=== PATIENT | male | born 1955 | race Caucasian/White ===

== ENCOUNTER 2016-04-03 19:08 | Emergency (ER) | payer MEDICARE, MEDICAID ==
--- NOTE | 2016-04-03 19:28 | EDM.PDOC ---
ED HPI GENERAL MEDICAL PROBLEM - General Chief Complaint: General Stated Complaint: stomach pain, chest pain, back pain Time Seen by Provider: 04/03/16 19:19 Source of Information: Reports: Patient History Limitations: Reports: No limitations - History of Present Illness INITIAL COMMENTS - FREE TEXT/NARRATIVE: pt states abd presure pain that all over abd into back and up spine and into all over chest started about 530 am non stop 11/01 neg NV diaphoretic SOB DARLNIG fever has had diarrhea x 2days maybe 7x's or so has been seen in [place] with in last 8 months cardiac stent placed 2nd blockage lots test but pt unsure of what denies AAA TAA HX or family HX of AAA TAA pt HX CABG 30 yrS AGO Onset: today Location: Reports: chest, abdomen, back Quality: Reports: Dull, Pressure Improves with: Reports: Other (WALKING ) Worsens with: Reports: Other (lying down ) Associated Symptoms: Reports: chest pain. Denies: cough, diaphoresis, fever/ chills, loss of appetite, nausea/vomiting, shortness of breath Generalized Pain Score (Numeric/FACES): 8 - Related Data Allergies Allergy/AdvReac Type Severity Reaction Status Date / Time buspirone [From BuSpar] Allergy Other Verified 04/03/16 19:53 diclofenac sodium Allergy Itching Verified 04/03/16 19:53 [From Arthrotec 50] misoprostol Allergy Cannot Verified 04/03/16 19:11 [From Arthrotec 50] Remember tizanidine [From Zanaflex] Allergy Other Verified 04/03/16 19:53 codeine AdvReac Stomach Verified 04/03/16 19:11 Upset Home Meds: Home Meds ALPRAZolam [Xanax] 0.5 mg PO Q12HR PRN 02/23/13 [History] Amitriptyline [Elavil] 25 mg PO BEDTIME 02/23/13 [History] Hydrocodone/Acetaminophen [Hydrocodon-Acetaminophn 10660] 1 each PO TID [History] Sertraline [Zoloft] 100 mg PO BEDTIME 02/23/13 [History] Allopurinol [Zyloprim] 300 mg PO DAILY 04/03/16 [History] Aspirin [Adult Low Dose Aspirin EC] 81 mg PO DAILY 04/03/16 [History] Cyclobenzaprine [Flexeril] 10 mg PO TID 04/03/16 [History] Esomeprazole Magnesium [Nexium] 40 mg PO DAILY 04/03/16 [History] Gabapentin [Neurontin] 800 mg PO TID 04/03/16 [History] Magnesium Oxide 400 mg PO DAILY 04/03/16 [History] amLODIPine [Norvasc] 5 mg PO DAILY 04/03/16 [History] Past Medical History Cardiovascular History: Reports: Bypass, CAD, High cholesterol, Pacemaker. Denies: Aneurysm, Hypertension Respiratory History: Denies: Asthma, COPD Gastrointestinal History: Reports: None Genitourinary History: Reports: None Musculoskeletal History: Reports: Gout Neurological History: Reports: None Oncologic (Cancer) History: Reports: None - Past Surgical History Musculoskeletal Surgical History: Reports: Other (see below) Other Musculoskeletal Surgeries/Procedures:: Foot and toe surgeries. Social & Family History - Tobacco Use Smoking Status *Q: Former Smoker Second Hand Smoke Exposure: No - Alcohol Use Days Per Week of Alcohol Use: 7 Number of Drinks Per Day: 3 Total Drinks Per Week: 21 - Recreational Drug Use Recreational Drug Use: No ED ROS GENERAL - Review of Systems Review Of Systems: See Below Constitutional: Reports: no symptoms HEENT: Reports: No symptoms Respiratory: Reports: no symptoms Cardiovascular: Reports: Chest pain. Denies: Blood pressure problem, Claudication, Lightheadedness, Orthopnea Endocrine: Reports: no symptoms GI/Abdominal: Reports: Abdominal pain. Denies: Constipation, Diarrhea : Reports: no symptoms Musculoskeletal: Reports: back pain Neurological: Reports: no symptoms Psychiatric: Reports: No symptoms Hematologic/Lymphatic: Reports: no symptoms Immunologic: Reports: no symptoms ED EXAM, GENERAL - Physical Exam Exam: See Below Exam Limited By: No limitations General Appearance: alert, WD/WN, no apparent distress Eye Exam: bilateral eye: PERRL Ears: normal external exam Neck: normal inspection, supple, non-tender, full range of motion. No: carotid bruit, limited range of motion Respiratory/Chest: no respiratory distress, lungs clear, normal breath sounds, no accessory muscle use, chest non-tender Cardiovascular: normal peripheral pulses, regular rate, rhythm, no edema, no gallop, no JVD. No: no murmur, JVD GI/Abdominal: normal bowel sounds, soft, non tender, no organomegaly, no distention, no abnormal bruit, no mass, other. No: distended, guarding, rigid, rebound, tender Back Exam: normal inspection, full range of motion. No: muscle spasm, paraspinal tenderness, vertebral tenderness Neurological: alert, oriented, CN II-XII intact, normal cognition, normal gait Psychiatric: normal affect, normal mood Skin Exam: Warm, Dry, Intact, Normal color, No rash Course - Vital Signs Text/Narrative:: cardiac work up reviewed old records here faxed release for records at [facility] for CT US chest abd pelvis no records of ct will scan for R/O AAA pt had asa am and is on norvasc will give bentyl 20 mg po labs all NEG CT abd pelvis NEG AAA mild thicking of GB 11cm recheck pt abd batter somewhat back still hurting will give toradol 30 mg IV has lortab and flexril at home Last Recorded V/S: Last Vital Signs Temp 35.9 C 04/03/16 19:11 Pulse 95 04/03/16 19:11 Resp 18 04/03/16 19:11 BP 137/71 04/03/16 21:05 Pulse Ox 99 04/03/16 19:11 - Orders/Labs/Meds Orders: Active Orders 24 hr Category Date Time Status CTA Abd Pelv w Cont [CT] Stat Exams 04/03/16 20:21 Ordered Chest 2V [CR] Stat Exams 04/03/16 19:20 Ordered Labs: Laboratory Tests 04/03/16 04/03/16 04/03/16 Range/Units 19:47 19:47 19:47 WBC 6.2 (4.0-10.0) x10^3/uL RBC 4.15 L (4.5-6.0) x10^6/uL Hgb 13.2 L (14.0-18.0) g/dL Hct 37.7 L (40.0-52.0) % MCV 90.8 (78.0-93.0) fL MCH 31.8 (26.0-32.0) pg MCHC 35.0 (32.0-36.0) g/dL RDW Coeff of Kamla 12.4 (10.0-15.0) % Plt Count 148 (130-400) x10^3/uL Neut % (Auto) 79.6 (50.0-80.0) % Lymph % (Auto) 12.0 L (25.0-50.0) % [place] % (Auto) 7.6 (2.0-11.0) % Eos % (Auto) 0.6 (0.0-4.0) % Baso % (Auto) 0.2 (0.2-1.2) % PT 10.0 (10.0-12.8) SEC INR 0.9 L (2.0-3.5) APTT 25.6 (24.0-36.0) SEC Sodium 137 (136-145) mmol/L Potassium 3.8 (3.5-5.1) mmol/L Chloride 101 (98-107) mmol/L Carbon Dioxide 29 (21-32) mmol/L BUN 8 (7-18) mg/dL Creatinine 1.0 (0.70-1.30) mg/dL Est Cr Clr Drug Dosing TNP Estimated GFR (MDRD) > 60 Glucose 116 H (74-106) mg/dL Calcium 8.2 L (8.5-10.1) mg/dL Troponin I < 0.017 (<=0.056) ng/mL Meds: Medications Discontinued Medications Generic Name Dose Route Start Last Admin Trade Name Freq PRN Reason Stop Dose Admin Dicyclomine HCl 20 mg 04/03/16 20:41 04/03/16 21:01 Bentyl PO 04/03/16 20:42 20 mg ONETIME ONE Administration Iopamidol 100 ml 04/03/16 20:41 04/03/16 21:16 Isovue-300 (61%) IVPUSH 04/03/16 20:42 100 ml ONETIME ONE Administration Ketorolac Tromethamine 30 mg 04/03/16 21:51 04/03/16 21:55 Toradol IVPUSH 04/03/16 21:52 30 mg ONETIME ONE Administration Simethicone 160 mg 04/03/16 20:42 04/03/16 21:02 Simethicone PO 04/03/16 20:43 160 mg ONETIME ONE Administration Departure - Departure Time of Disposition: 21:40 Disposition: Home, Self-Care 01 Condition: good Clinical Impression: Non-cardiac chest pain, Back pain, Abdominal pain Referrals: Sofía Barber MD [Primary Care Provider] - Forms: ED Department Discharge Additional Instructions: return to ER if anything changes or gets worse follow up with your primary provider in 24-48 hrs - My Orders Last 24 Hours: My Active Orders 04/03/16 19:20 Chest 2V [CR] Stat 04/03/16 20:21 CTA Abd Pelv w Cont [CT] Stat - Assessment/Plan Last 24 Hours: My Active Orders 04/03/16 19:20 Chest 2V [CR] Stat 04/03/16 20:21 CTA Abd Pelv w Cont [CT] Stat
[2016-04-03 19:57] LABS: BASOPHILS PERCENT AUTO 0.2 % (0.2-1.2); EOSINOPHILS PERCENT AUTO 0.6 % (0.0-4.0); HEMATOCRIT 37.7 % (40.0-52.0); HEMOGLOBIN 13.2 g/dL (14.0-18.0); MEAN CORPUSCULAR HEMOGLOBIN 31.8 pg (26.0-32.0); MEAN CORPUSCULAR VOLUME 90.8 fL (78.0-93.0); MONOCYTES PERCENT AUTO 7.6 % (2.0-11.0); NEUTROPHILS PERCENT AUTO 79.6 % (50.0-80.0); RDW CV 12.4 % (10.0-15.0); RED BLOOD CELL COUNT 4.15 x10^6/uL (4.5-6.0)
[2016-04-03 20:16] LABS: CALCIUM 8.2 mg/dL (8.5-10.1); CHLORIDE,CL 101 mmol/L (98-107); ESTIMATED GFR > 60; GLUCOSE RANDOM 116 mg/dL (74-106)
[2016-04-03 20:17] LABS: TROPONIN I < 0.017 ng/mL (<=0.056)
[2016-04-03 20:21] LABS: INR 0.9 (2.0-3.5)
[2016-04-03] MEDS ORDERED: Iopamidol 612 MG/ML 100 ML Bottle IVPUSH ONE (20:41)
[2016-04-03] MEDS ORDERED: Dicyclomine 10 MG Cap PO ONE (20:41)
[2016-04-03] MEDS ORDERED: Simethicone 80 MG Tab.Chew PO ONE (20:42)
[2016-04-03 21:05] VITALS: BP 137/71
[2016-04-03] MEDS ORDERED: Ketorolac 30 MG/ML SDV IVPUSH ONE (21:51)
== END 2016-04-03 22:03 | disposition home or self-care (01) ==
LOC: VM.ED 19:08
DX: R07.89 Other chest pain (principal); M54.9 Dorsalgia, unspecified; R10.9 Unspecified abdominal pain; I25.10 Atherosclerotic heart disease of native coronary artery without angina pectoris; E78.00 Pure hypercholesterolemia, unspecified; Z88.8 Allergy status to other drugs, medicaments and biological substances; Z88.6 Allergy status to analgesic agent; Z79.899 Other long term (current) drug therapy; Z79.82 Long term (current) use of aspirin; Z87.891 Personal history of nicotine dependence
CPT/HCPCS: 36415; 71020; 74174; 80048; 84484; 85025; 85610; 85730; 96374; 99284; A9270; J1885; Q9967

== ENCOUNTER 2017-01-06 09:56 | Emergency (ER) | payer MEDICARE, MEDICAID ==
[2017-01-06] MEDS ORDERED: Aspirin 81 MG Tab.Chew PO ONE ×2 (10:17→10:31)
[2017-01-06] MEDS ORDERED: Morphine 4 MG/ML Syringe IVPUSH ONE (10:26)
[2017-01-06] MEDS ORDERED: Ondansetron 4 MG/2 ML SDV IVPUSH ONE (10:28)
[2017-01-06] MEDS ORDERED: Sodium Chloride 0.9% 10 ML Syringe FLUSH PRN (10:31)
[2017-01-06] MEDS ORDERED: Nitroglycerin 0.4 MG Tab.SL SL ONE ×2 (10:31→11:00)
[2017-01-06 10:54] LABS: CHLORIDE,CL 99 mmol/L (98-107); SODIUM,NA 138 mmol/L (136-145)
[2017-01-06] MEDS ORDERED: HYDROmorphone 1 MG/ML Syringe IVPUSH ONE ×2 (11:04→12:48)
[2017-01-06] MEDS ORDERED: LORazepam 2 MG/ML SDV IVPUSH ONE (11:04)
[2017-01-06 11:15] VITALS: BP 148/95
--- NOTE | 2017-01-06 11:16 | EDM.PDOC ---
ED HPI GENERAL MEDICAL PROBLEM - General Chief Complaint: Chest Pain Stated Complaint: chest pain Time Seen by Provider: 01/06/17 10:26 Source of Information: Reports: Patient History Limitations: Reports: No Limitations - History of Present Illness INITIAL COMMENTS - FREE TEXT/NARRATIVE: Patient comes in this morning with complaints of severe left-sided chest pain. He states pain started at 0530 this AM. When I walk into the room he is writhing in pain, kicking his legs and rolling on the cot. Patient denies any prior SD, he also denies any prior CVA. He does have some nausea. States the pain is sharp and sometimes feels like pressure sometimes feeling sharp and stabbing that radiates to his back. He also does endorse some generalized abdominal pain. 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 He denies any blood in urine, stool, or emesis. Onset: Today Onset Time: 05:30 Improves with: Reports: None Worsens with: Reports: None Associated Symptoms: Reports: No Other Symptoms Left Chest Pain Score (Numeric/FACES): 10 - Related Data Allergies Allergy/AdvReac Type Severity Reaction Status Date / Time buspirone [From BuSpar] Allergy Other Verified 01/06/17 10:21 diclofenac sodium Allergy Itching Verified 01/06/17 10:21 [From Arthrotec 50] misoprostol Allergy Cannot Verified 01/06/17 10:21 [From Arthrotec 50] Remember tizanidine [From Zanaflex] Allergy Other Verified 01/06/17 10:21 codeine AdvReac Stomach Verified 01/06/17 10:21 Upset Home Meds: Home Meds ALPRAZolam [Xanax] 0.5 mg PO Q12HR PRN 02/23/13 [History] Amitriptyline [Elavil] 25 mg PO BEDTIME 02/23/13 [History] Hydrocodone/Acetaminophen [Hydrocodon-Acetaminophn 10660] 1 each PO Q6H PRN 05/07 [History] Sertraline [Zoloft] 100 mg PO BEDTIME 02/23/13 [History] Allopurinol [Zyloprim] 300 mg PO DAILY 04/03/16 [History] Aspirin [Adult Low Dose Aspirin EC] 81 mg PO DAILY 04/03/16 [History] Cyclobenzaprine [Flexeril] 10 mg PO TID PRN 04/03/16 [History] Esomeprazole Magnesium [Nexium] 40 mg PO DAILY 04/03/16 [History] Magnesium Oxide 400 mg PO DAILY 04/03/16 [History] amLODIPine [Norvasc] 5 mg PO DAILY 04/03/16 [History] Pregabalin [Lyrica] 100 mg PO BID 04/22/16 [History] Past Medical History Cardiovascular History: Reports: Bypass, CAD, High Cholesterol, Pacemaker Other Cardiovascular History: paraoxysmal tachycardia, acute coronary syndrome, history of complete heart block, carotid sinus syncope, atrial septal defect Gastrointestinal History: Reports: Other (See Below) Other Gastrointestinal History: acid reflux Genitourinary History: Reports: None Other Genitourinary History: acute kidney injury Musculoskeletal History: Reports: Gout, Other (See Below) Other Musculoskeletal History: Back pain. Neurological History: Reports: None Psychiatric History: Reports: Anxiety, Depression Other Psychiatric History: alcohol abuse Oncologic (Cancer) History: Reports: None - Past Surgical History Musculoskeletal Surgical History: Reports: Other (See Below) Other Musculoskeletal Surgeries/Procedures:: foot surgery Social & Family History - Tobacco Use Smoking Status *Q: Former Smoker Used Tobacco, but Quit: Yes Month Tobacco Last Used: unknown Second Hand Smoke Exposure: No - Alcohol Use Days Per Week of Alcohol Use: 4 Number of Drinks Per Day: 2 Total Drinks Per Week: 8 - Recreational Drug Use Recreational Drug Use: No ED ROS GENERAL - Review of Systems Review Of Systems: See Below Constitutional: Reports: No Symptoms HEENT: Reports: No Symptoms Respiratory: Reports: Shortness of Breath Cardiovascular: Reports: Chest Pain GI/Abdominal: Reports: Abdominal Pain, Nausea, Vomiting : Reports: No Symptoms Musculoskeletal: Reports: Back Pain Skin: Reports: No Symptoms Neurological: Reports: No Symptoms Psychiatric: Reports: No Symptoms Hematologic/Lymphatic: Reports: No Symptoms Immunologic: Reports: No Symptoms ED EXAM, GENERAL - Physical Exam Exam: See Below Exam Limited By: No Limitations General Appearance: Alert, WD/WN, No Apparent Distress Eye Exam: Bilateral Eye: EOMI, PERRL Throat/Mouth: Normal Inspection, Normal Oropharynx Head: Atraumatic, Normocephalic Neck: Normal Inspection, Supple, Non-Tender, Full Range of Motion Respiratory/Chest: No Respiratory Distress, Lungs Clear, Normal Breath Sounds Cardiovascular: Normal Peripheral Pulses, Regular Rate, Rhythm, No Edema, No Gallop, No Murmur GI/Abdominal: Normal Bowel Sounds, Soft, No Organomegaly, No Distention, No Abnormal Bruit, No Mass, Tender Back Exam: Normal Inspection Extremities: Normal Inspection, Normal Range of Motion, Non-Tender, Normal Capillary Refill, No Pedal Edema Neurological: Alert, Oriented, CN II-XII Intact, Normal Cognition, Normal Gait, Normal Reflexes, No Motor/Sensory Deficits Psychiatric: Normal Affect, Normal Mood Skin Exam: Warm, Dry, Intact, Normal Color, No Rash Lymphatic: No Adenopathy EKG INTERPRETATION EKG Date: 01/06/17 Time: 10:05 Rhythm: NSR Rate (Beats/Min): 94 [place]: Normal P-Wave: Present QRS: RBBB (partial) ST-T: Normal QT: Normal Comparison: NA - No Prior EKG EKG Interpretation Comments: sinus rhythm possible left atrial enlargement incomplete right BBB Course - Vital Signs Last Recorded V/S: Last Vital Signs Temp 35.9 C 01/06/17 09:58 Pulse 89 01/06/17 11:14 Resp 20 01/06/17 09:58 BP 148/95 H 01/06/17 11:14 Pulse Ox 99 01/06/17 09:58 - Orders/Labs/Meds Orders: Active Orders 24 hr Category Date Time Status EKG Documentation Completion [RC] ROUTINE Care 01/06/17 10:31 Ordered Abdomen Pelvis w Cont [CT] Stat Exams 01/06/17 10:26 Taken Chest PE [Ang Chest] [CT] Stat Exams 01/06/17 10:51 Taken Chest w Cont [CT] Stat Exams 01/06/17 10:27 Stop Req Sodium Chloride 0.9% [Normal Saline] 1,000 ml Med 01/06/17 12:40 Active IV ONETIME Sodium Chloride 0.9% [Normal Saline] 100 ml Med 01/06/17 11:45 Active IV ASDIRECTED Sodium Chloride 0.9% [Saline Flush] Med 01/06/17 10:31 Active 10 ml FLUSH ASDIRECTED PRN Saline Lock Insert [OM.PC] Routine Oth 01/06/17 10:31 Ordered Medication Orders Sodium Chloride (Normal Saline) 100 mls @ 3 mls/sec IV ASDIRECTED BELEN Last Admin: 01/06/17 11:54 Dose: 3 mls/sec Sodium Chloride (Normal Saline) 1,000 mls @ 999 mls/hr IV ONETIME ONE Stop: 01/06/17 13:40 Last Admin: 01/06/17 12:47 Dose: 999 mls/hr Sodium Chloride (Saline Flush) 10 ml FLUSH ASDIRECTED PRN PRN Reason: Keep Vein Open Labs: Laboratory Tests 01/06/17 01/06/17 01/06/17 Range/Units 10:20 10:20 10:20 WBC 8.6 (4.0-10.0) x10^3/uL RBC 4.92 (4.5-6.0) x10^6/uL Hgb 15.7 D (14.0-18.0) g/dL Hct 44.6 (40.0-52.0) % MCV 90.7 (78.0-93.0) fL MCH 31.9 (26.0-32.0) pg MCHC 35.2 (32.0-36.0) g/dL RDW Coeff of Kamla 12.4 (10.0-15.0) % Plt Count 224 (130-400) x10^3/uL Neut % (Auto) 78.1 (50.0-80.0) % Lymph % (Auto) 14.1 L (25.0-50.0) % [place] % (Auto) 6.7 (2.0-11.0) % Eos % (Auto) 0.9 (0.0-4.0) % Baso % (Auto) 0.2 (0.2-1.2) % PT 9.5 L (9.8-11.8) SEC INR 0.9 L (2.0-3.5) APTT 23.8 (22.0-34.0) SEC D-Dimer, Quantitative (<=0.58) mg/LFEU Sodium 138 (136-145) mmol/L Potassium 4.2 (3.5-5.1) mmol/L Chloride 99 (98-107) mmol/L Carbon Dioxide 27 (21-32) mmol/L BUN 12 (7-18) mg/dL Creatinine 1.1 (0.70-1.30) mg/dL Est Cr Clr Drug Dosing 74.16 mL/min Estimated GFR (MDRD) > 60 Glucose 137 H (74-106) mg/dL Calcium 10.1 (8.5-10.1) mg/dL Corrected Calcium 9.38 (8.5-10.1) mg/dL Total Bilirubin 0.4 (0.2-1.0) mg/dL AST 18 (15-37) U/L ALT 23 (16-63) U/L Alkaline Phosphatase 157 H (46-116) U/L Creatine Kinase (39-308) U/L Creatine Kinase Index (0.0-4.0) % CK-MB (CK-2) (0.0-3.6) ng/mL POC Troponin I (0.00-0.08) ng/mL C-Reactive Protein (<=0.9) mg/dL NT-Pro-B Natriuret Pep (<=125) pg/mL Total Protein 9.3 H (6.4-8.2) g/dL Albumin 4.9 (3.4-5.0) g/dL Globulin 4.4 Albumin/Globulin Ratio 1.11 Triglycerides (0-149) mg/dL Amylase (25-115) U/L Lipase (73-393) U/L TSH, Ultra Sensitive (0.358-3.74) uIU/mL 01/06/17 01/06/17 01/06/17 Range/Units 10:20 10:20 10:20 WBC (4.0-10.0) x10^3/uL RBC (4.5-6.0) x10^6/uL Hgb (14.0-18.0) g/dL Hct (40.0-52.0) % MCV (78.0-93.0) fL MCH (26.0-32.0) pg MCHC (32.0-36.0) g/dL RDW Coeff of Kamla (10.0-15.0) % Plt Count (130-400) x10^3/uL Neut % (Auto) (50.0-80.0) % Lymph % (Auto) (25.0-50.0) % [place] % (Auto) (2.0-11.0) % Eos % (Auto) (0.0-4.0) % Baso % (Auto) (0.2-1.2) % PT (9.8-11.8) SEC INR (2.0-3.5) APTT (22.0-34.0) SEC D-Dimer, Quantitative 0.47 (<=0.58) mg/LFEU Sodium (136-145) mmol/L Potassium (3.5-5.1) mmol/L Chloride (98-107) mmol/L Carbon Dioxide (21-32) mmol/L BUN (7-18) mg/dL Creatinine (0.70-1.30) mg/dL Est Cr Clr Drug Dosing mL/min Estimated GFR (MDRD) Glucose (74-106) mg/dL Calcium (8.5-10.1) mg/dL Corrected Calcium (8.5-10.1) mg/dL Total Bilirubin (0.2-1.0) mg/dL AST (15-37) U/L ALT (16-63) U/L Alkaline Phosphatase (46-116) U/L Creatine Kinase 65 (39-308) U/L Creatine Kinase Index 1.5 (0.0-4.0) % CK-MB (CK-2) 1.0 (0.0-3.6) ng/mL POC Troponin I (0.00-0.08) ng/mL C-Reactive Protein 0.4 (<=0.9) mg/dL NT-Pro-B Natriuret Pep 137 H (<=125) pg/mL Total Protein (6.4-8.2) g/dL Albumin (3.4-5.0) g/dL Globulin Albumin/Globulin Ratio Triglycerides (0-149) mg/dL Amylase (25-115) U/L Lipase (73-393) U/L TSH, Ultra Sensitive 3.905 H (0.358-3.74) uIU/mL 01/06/17 01/06/17 Range/Units 10:20 10:22 WBC (4.0-10.0) x10^3/uL RBC (4.5-6.0) x10^6/uL Hgb (14.0-18.0) g/dL Hct (40.0-52.0) % MCV (78.0-93.0) fL MCH (26.0-32.0) pg MCHC (32.0-36.0) g/dL RDW Coeff of Kamla (10.0-15.0) % Plt Count (130-400) x10^3/uL Neut % (Auto) (50.0-80.0) % Lymph % (Auto) (25.0-50.0) % [place] % (Auto) (2.0-11.0) % Eos % (Auto) (0.0-4.0) % Baso % (Auto) (0.2-1.2) % PT (9.8-11.8) SEC INR (2.0-3.5) APTT (22.0-34.0) SEC D-Dimer, Quantitative (<=0.58) mg/LFEU Sodium (136-145) mmol/L Potassium (3.5-5.1) mmol/L Chloride (98-107) mmol/L Carbon Dioxide (21-32) mmol/L BUN (7-18) mg/dL Creatinine (0.70-1.30) mg/dL Est Cr Clr Drug Dosing mL/min Estimated GFR (MDRD) Glucose (74-106) mg/dL Calcium (8.5-10.1) mg/dL Corrected Calcium (8.5-10.1) mg/dL Total Bilirubin (0.2-1.0) mg/dL AST (15-37) U/L ALT (16-63) U/L Alkaline Phosphatase (46-116) U/L Creatine Kinase (39-308) U/L Creatine Kinase Index (0.0-4.0) % CK-MB (CK-2) (0.0-3.6) ng/mL POC Troponin I 0.00 (0.00-0.08) ng/mL C-Reactive Protein (<=0.9) mg/dL NT-Pro-B Natriuret Pep (<=125) pg/mL Total Protein (6.4-8.2) g/dL Albumin (3.4-5.0) g/dL Globulin Albumin/Globulin Ratio Triglycerides 72 (0-149) mg/dL Amylase 50 (25-115) U/L Lipase 161 (73-393) U/L TSH, Ultra Sensitive (0.358-3.74) uIU/mL Meds: Medications Generic Name Dose Route Start Last Admin Trade Name Freq PRN Reason Stop Dose Admin Sodium Chloride 100 mls @ 3 mls/sec 01/06/17 11:45 01/06/17 11:54 Normal Saline IV 3 mls/sec ASDIRECTED BELEN Administration Sodium Chloride 1,000 mls @ 999 mls/hr 01/06/17 12:40 01/06/17 12:47 Normal Saline IV 01/06/17 13:40 999 mls/hr ONETIME ONE Administration Sodium Chloride 10 ml 01/06/17 10:31 Saline Flush FLUSH ASDIRECTED PRN Keep Vein Open Discontinued Medications Generic Name Dose Route Start Last Admin Trade Name Freq PRN Reason Stop Dose Admin Aspirin 324 mg 01/06/17 10:17 01/06/17 10:17 Aspirin PO 01/06/17 10:18 324 mg ONETIME ONE Administration Hydromorphone HCl 1 mg 01/06/17 11:04 01/06/17 11:12 Dilaudid IVPUSH 01/06/17 11:05 1 mg ONETIME ONE Administration Hydromorphone HCl 1 mg 01/06/17 12:48 01/06/17 12:53 Dilaudid IVPUSH 01/06/17 12:49 1 mg ONETIME ONE Administration Lactated Ringer's 1,000 mls @ 150 mls/hr 01/06/17 12:30 Ringers, Lactated IV ASDIRECTED BELEN Piperacillin Sod/Tazobactam 100 mls @ 200 mls/hr 01/06/17 12:31 01/06/17 12: 56 Sod 4.5 gm/ Sodium Chloride IV 01/06/17 13:00 200 mls/hr ONETIME ONE Administration Iopamidol 100 ml 01/06/17 11:43 01/06/17 11:54 Isovue-300 (61%) IVPUSH 01/06/17 11:44 100 ml ONETIME ONE Administration Lorazepam 0.5 mg 01/06/17 11:04 01/06/17 11:11 Ativan IVPUSH 01/06/17 11:05 0.5 mg ONETIME ONE Administration Morphine Sulfate 4 mg 01/06/17 10:26 01/06/17 10:31 Morphine IVPUSH 01/06/17 10:27 4 mg ONETIME ONE Administration Nitroglycerin 0.4 mg 01/06/17 10:31 01/06/17 10:20 Nitrostat SL 01/06/17 10:32 0.4 mg ONETIME ONE Administration Nitroglycerin 0.4 mg 01/06/17 11:00 01/06/17 10:58 Nitrostat SL 01/06/17 11:01 0.4 mg ONETIME ONE Administration Ondansetron HCl 4 mg 01/06/17 10:28 01/06/17 10:35 Zofran IVPUSH 01/06/17 10:29 4 mg ONETIME ONE Administration - Radiology Interpretation Free Text/Narrative:: CT positive for acute cholecystitis. Negative for PE, AAA Zosyn given before transfer Departure - Departure Time of Disposition: 13:28 Disposition: DC/Tfer to Acute Hospital 02 Reason for Transfer *Q: Other Condition: Good Clinical Impression: Cholecystitis, acute Referrals: Sofía Barber MD [Primary Care Provider] - Forms: ED Department Discharge, Interfacility Transfer EMTALA ED Communication - Discussed Case With (1) Discussed Case With (1): Admitting Provider (Dr. Simmons general surgeon at [facility] accepted care. Await room number for transfer) - My Orders Last 24 Hours: My Active Orders 01/06/17 10:26 Abdomen Pelvis w Cont [CT] Stat 01/06/17 10:27 Chest w Cont [CT] Stat 01/06/17 10:31 EKG Documentation Completion [RC] ROUTINE Sodium Chloride 0.9% [Saline Flush] 10 ml FLUSH ASDIRECTED PRN Saline Lock Insert [OM.PC] Routine 01/06/17 10:51 Chest PE [Ang Chest] [CT] Stat 01/06/17 11:45 Sodium Chloride 0.9% [Normal Saline] 100 ml IV ASDIRECTED 01/06/17 12:40 Sodium Chloride 0.9% [Normal Saline] 1,000 ml IV ONETIME - Assessment/Plan Last 24 Hours: My Active Orders 01/06/17 10:26 Abdomen Pelvis w Cont [CT] Stat 01/06/17 10:27 Chest w Cont [CT] Stat 01/06/17 10:31 EKG Documentation Completion [RC] ROUTINE Sodium Chloride 0.9% [Saline Flush] 10 ml FLUSH ASDIRECTED PRN Saline Lock Insert [OM.PC] Routine 01/06/17 10:51 Chest PE [Ang Chest] [CT] Stat 01/06/17 11:45 Sodium Chloride 0.9% [Normal Saline] 100 ml IV ASDIRECTED 01/06/17 12:40 Sodium Chloride 0.9% [Normal Saline] 1,000 ml IV ONETIME
[2017-01-06] MEDS ORDERED: Iopamidol 612 MG/ML 100 ML Bottle IVPUSH ONE (11:43)
[2017-01-06] MEDS ORDERED: Sodium Chloride 0.9% 100 ML IV SCH (11:45)
[2017-01-06] MEDS ORDERED: Lactated Ringers 1,000 ML IV SCH (12:30)
[2017-01-06] MEDS ORDERED: Piperacillin/Tazobactam 4.5 GM in Sodium Chloride 0.9% 100 ML IV ONE (12:31)
[2017-01-06] MEDS ORDERED: Sodium Chloride 0.9% 1,000 ML IV ONE (12:40)
== END 2017-01-06 13:34 | disposition short-term general hospital (02) ==
LOC: VM.ED 09:56
DX: K81.0 Acute cholecystitis (principal); I25.10 Atherosclerotic heart disease of native coronary artery without angina pectoris; E78.00 Pure hypercholesterolemia, unspecified; F32.9 Major depressive disorder, single episode, unspecified; Z98.890 Other specified postprocedural states; Z87.891 Personal history of nicotine dependence; Z79.899 Other long term (current) drug therapy; Z88.5 Allergy status to narcotic agent; Z88.8 Allergy status to other drugs, medicaments and biological substances
CPT/HCPCS: 71275; 74177; 80053; 82150; 82550; 82553; 83690; 83880; 84443; 84478; 84484; 85025; 85379; 85610; 85730; 86140; 93010; 96361; 96374; 96375; 96376; 99284; 99285; A9270; J1170; J2060; J2270; J2405; J2543; J7030; J7050; Q9967

== ENCOUNTER 2018-08-26 07:17 | Day surgery (SDC) | payer MEDICARE, MEDICAID ==
[~2018-08-26 07:17] MED LIST: Lactated Ringers 1,000 ML IV SCH; Sodium Chloride 0.9% 10 ML Syringe FLUSH PRN
[2018-08-26] MEDS ORDERED: fentaNYL 100 MCG/2 ML SDV ONE (10:04)
[2018-08-26] MEDS ORDERED: Propofol 200 MG/20 ML SDV ONE (10:04)
[2018-08-26] MEDS ORDERED: Midazolam 1 MG/ML 2 ML SDV ONE (10:04)
--- NOTE | 2018-08-26 10:58 | OR ---
PREOPERATIVE DIAGNOSIS: Positive fecal immunochemical test. POSTOPERATIVE DIAGNOSES: 1. Essentially normal colonoscopic exam. 2. Mild internal hemorrhoids. PROCEDURE PROPOSED: Total flexible colonoscopy. PROCEDURE DONE: Total flexible colonoscopy. INDICATION: This is a 63-year-old gentleman referred for colonoscopy due to a positive FIT test. He does state he has noticed some bright red blood per rectum as well in the recent past. He has had a previous colonoscopy, but it has been many years ago according to the patient. TECHNIQUE: The patient was brought to the endoscopy suite, placed in left lateral decubitus position. He was sedated per [employer] with propofol. The flexible video colonoscope was then passed transanally and under visualization advanced to the cecum. Examination revealed normal ascending, transverse, descending, sigmoid, and rectal colon. No evidence of any polyps, colitis, or any significant diverticular disease. He was noted to have some mild internal hemorrhoids upon withdrawal of scope and this likely is the area from which he was bleeding. There was no blood noted on today's exam. He tolerated the procedure very well. FINAL IMPRESSION: 1. Essentially normal colonoscopic exam. 2. Mild internal hemorrhoids, likely the source of bleeding. PLAN: If the patient continues to have bleeding issues, he should consider Anusol HC suppositories nightly for 12 nights, and if that does not solve the problem, he could consider an evaluation in the clinic again with anoscopy with possible hemorrhoid banding. Otherwise, I feel that he should be good for about 10 years before he needs a repeat colonoscopy. SCM: 08/26/2018 10:35:16 MODL: 08/26/2018 10:55:34 /[id number]
[2018-08-26 11:01] VITALS: BP 130/63
== END 2018-08-26 11:29 | disposition home or self-care (01) ==
LOC: VM.SDS 07:17
PROVIDERS: ATTEND Surgery
DX: K62.5 Hemorrhage of anus and rectum (principal); K64.8 Other hemorrhoids; R10.11 Right upper quadrant pain; K21.9 Gastro-esophageal reflux disease without esophagitis; K44.9 Diaphragmatic hernia without obstruction or gangrene; I34.0 Nonrheumatic mitral (valve) insufficiency; I44.2 Atrioventricular block, complete; I27.20 Pulmonary hypertension, unspecified; I13.0 Hypertensive heart and chronic kidney disease with heart failure and stage 1 through stage 4 chronic kidney disease, or unspecified chronic kidney disease; I50.32 Chronic diastolic (congestive) heart failure; N18.3 Chronic kidney disease, stage 3 (moderate); E78.00 Pure hypercholesterolemia, unspecified; F41.9 Anxiety disorder, unspecified; R91.1 Solitary pulmonary nodule; Z88.5 Allergy status to narcotic agent; Z88.8 Allergy status to other drugs, medicaments and biological substances; Z87.891 Personal history of nicotine dependence; Z79.82 Long term (current) use of aspirin; Z79.1 Long term (current) use of non-steroidal anti-inflammatories (NSAID); Z79.899 Other long term (current) drug therapy
CPT/HCPCS: 00812; 36415; 45378; 84132; 93005; J2250; J2704; J3010; J7120

== ENCOUNTER 2021-03-21 04:36 | Emergency (ER) | payer MEDICARE, MEDICAID ==
--- NOTE | 2021-03-21 05:08 | EDM.PDOC ---
ED HPI GENERAL MEDICAL PROBLEM - General Chief Complaint: General Stated Complaint: Unresponsive Time Seen by Provider: 03/21/21 04:38 Source of Information: Reports: EMS History Limitations: Reports: Altered Mental Status - History of Present Illness INITIAL COMMENTS - FREE TEXT/NARRATIVE: Found prone and unresponsive, smelling of ETOH. Had empty hydrocodone bottle, unknown how many, if any taken. EMS gave three doses Narcan prior to arrival. Arrived to ER with some spontaneous movement of extremities, 100% O2 sat on NRB. EKG done by EMS shows Sinus Rhythm. On backboard/EDEN. Onset Date: 03/20/21 Onset Time: 04:00 Duration: Constant - Related Data Allergies Allergy/AdvReac Type Severity Reaction Status Date / Time buspirone [From BuSpar] Allergy Other Verified 06/01/19 10:40 diclofenac sodium Allergy Itching Verified 06/01/19 10:40 [From Arthrotec 50] latex Allergy Other Verified 06/01/19 10:40 misoprostol Allergy Cannot Verified 06/01/19 10:40 [From Arthrotec 50] Remember tizanidine [From Zanaflex] Allergy Other Verified 06/01/19 10:40 codeine AdvReac Stomach Verified 06/01/19 10:40 Upset Home Meds: Home Meds ALPRAZolam [Xanax] 0.5 mg PO Q12HR PRN 02/23/13 [History] Allopurinol [Zyloprim] 300 mg PO DAILY 04/03/16 [History] Aspirin [Adult Low Dose Aspirin EC] 81 mg PO DAILY 04/03/16 [History] Cyclobenzaprine [Flexeril] 10 mg PO TID PRN 04/03/16 [History] Esomeprazole Magnesium [Nexium] 40 mg PO DAILY 04/03/16 [History] Magnesium Oxide 400 mg PO DAILY 04/03/16 [History] amLODIPine [Norvasc] 5 mg PO DAILY 04/03/16 [History] Pregabalin [Lyrica] 100 mg PO TID 04/22/16 [History] Ibuprofen [Motrin] 600 mg PO QID 08/11/18 [History] atorvaSTATin Calcium [Lipitor] 20 mg PO BEDTIME 08/11/18 [History] Amitriptyline [Elavil] 25 mg PO DAILY 06/01/19 [History] Celecoxib 200 mg PO DAILY 06/01/19 [History] Cyanocobalamin (Vitamin B12) [Vitamin B12] 100 mcg PO DAILY 06/01/19 [History] Hydrocodone/Acetaminophen [[place] 5-325 Tablet] 0.5 tab PO BID PRN 06/01/19 [History] Sertraline HCl 100 mg PO DAILY 06/01/19 [History] ondansetron HCL [Ondansetron HCl] 4 mg PO Q6H PRN 06/01/19 [History] Past Medical History HEENT History: Reports: Hard of Hearing Cardiovascular History: Reports: Bypass, CAD, Heart Failure, High Cholesterol, Hypertension, Pacemaker, Pulmonary Hypertension Other Cardiovascular History: paraoxysmal tachycardia, acute coronary syndrome, history of complete heart block, carotid sinus syncope, atrial septal defect,mitral regurgitation Respiratory History: Reports: Other (See Below) Other Respiratory History: acute interstitial pneumonitis; lung nodule Gastrointestinal History: Reports: Cholelithiasis, GERD, Hemorrhoids, Hiatal Hernia, Other (See Below) Other Gastrointestinal History: pt states he has been having rectal bleeding for "some time". acid reflux Genitourinary History: Reports: BPH, Other (See Below) Other Genitourinary History: acute kidney injury; hematuria Musculoskeletal History: Reports: Fibromyalgia, Gout, Neck Pain, Chronic, Osteoarthritis, Other (See Below) Other Musculoskeletal History: chronic pain; Back pain; myalgia; bilat shoulder pain; knee pain; rib pain Neurological History: Reports: Other (See Below) Other Neuro History: sciatica; cervical rediculopathy; altered sensorium; tremor Psychiatric History: Reports: Anxiety, Depression Other Psychiatric History: alcohol abuse; insomnia Endocrine/Metabolic History: Reports: Hypomagnesemia, Other (See Below) Other Endocrine/Metabolic History: hyperglycemia Oncologic (Cancer) History: Reports: None Dermatologic History: Reports: Other (See Below) Other Dermatologic History: alopecia; disturbance of skin sensation; parasthesia bilat feet - Past Surgical History HEENT Surgical History: Reports: Tonsillectomy Cardiovascular Surgical History: Reports: Other (See Below) Other Cardiovascular Surgeries/Procedures: pt states he had open heart surgery 53 years ago at age 11 because of heart murmer ("a hole in his heart the size of a silver dollar"); cardiac catheterization Respiratory Surgical History: Reports: Other (See Below) Other Respiratory Surgeries/Procedures: bronchoscopy GI Surgical History: Reports: Appendectomy, Cholecystectomy, EGD, Other (See Below) Other GI Surgeries/Procedures: abdominal pain Musculoskeletal Surgical History: Reports: Carpal Tunnel, Other (See Below) Other Musculoskeletal Surgeries/Procedures:: foot surgery; rt carpal tunnel; ED ROS GENERAL - Review of Systems Review Of Systems: Unable To Obtain Reason Not Obtained: unresponsive ED EXAM, GENERAL - Physical Exam Exam: See Below Exam Limited By: Altered Mental Status General Appearance: Other (unresponsive, smells of ETOH, does have spontaneous movement of all extremites) Eye Exam: Bilateral Eye: Normal Inspection (eyes shut), PERRL Ears: Normal External Exam Nose: Normal Inspection, Normal Mucosa, No Blood Throat/Mouth: Normal Inspection, Normal Lips, No Airway Compromise Head: Atraumatic, Normocephalic Neck: Normal Inspection Respiratory/Chest: No Respiratory Distress, Lungs Clear, Normal Breath Sounds, No Accessory Muscle Use Cardiovascular: Normal Peripheral Pulses, Regular Rate, Rhythm GI/Abdominal: Normal Bowel Sounds, Soft, No Distention Back Exam: Other (on back board on arrival) Extremities: Normal Capillary Refill, Other (moves spontaneously) Neurological: Unresponsive Psychiatric: Other (unresponsive) Skin Exam: Warm, Dry, Intact, Normal Color, No Rash Lymphatic: No Adenopathy Course - Vital Signs Last Recorded V/S: Last Vital Signs Temp Pulse Resp BP Pulse Ox 100 03/21/21 04:38 - Orders/Labs/Meds Orders: Active Orders 24 hr Category Date Time Status Urinary Catheter Insertion [Insert Urinary Catheter] [ Care 03/21/21 05:00 Ordered OM.PC] Q24H Labs: Laboratory Tests 03/21/21 03/21/21 03/21/21 Range/Units 04:50 04:50 05:00 WBC 6.7 (4.0-10.0) x10^3/uL RBC 4.32 L (4.5-6.0) x10^6/uL Hgb 12.8 L (14.0-18.0) g/dL Hct 37.8 L (40.0-52.0) % MCV 87.5 (78.0-93.0) fL MCH 29.6 (26.0-32.0) pg MCHC 33.9 (32.0-36.0) g/dL RDW Coeff of Kamla 12.7 (10.0-15.0) % Plt Count 206 (130-400) x10^3/uL Immature Gran % (Auto) 0.10 (0.00-0.43) % Neut % (Auto) 48.9 L (50.0-80.0) % Lymph % (Auto) 39.2 (25.0-50.0) % [place] % (Auto) 9.3 (2.0-11.0) % Eos % (Auto) 1.9 (0.0-4.0) % Baso % (Auto) 0.6 (0.2-1.2) % Neut # (Auto) 3.3 (1.8-7.7) x10^3/uL Lymph # (Auto) 2.6 (1.0-4.8) x10^3/uL [place] # (Auto) 0.6 (0.0-0.8) x10^3/uL Eos # (Auto) 0.1 (0.0-0.5) x10^3/uL Baso # (Auto) 0.0 (0.0-0.2) x10^3/uL Immature Gran # (Auto) 0.01 (0.00-0.07) x10^3/uL Sodium 132 L (136-145) mmol/L Potassium 3.9 (3.5-5.1) mmol/L Chloride 94 L (98-107) mmol/L Carbon Dioxide 26 (21-32) mmol/L Anion Gap 15.9 H (5-15) mmol/L BUN 7 (7-18) mg/dL Creatinine 1.0 (0.70-1.30) mg/dL Est Cr Clr Drug Dosing TNP Estimated GFR (MDRD) > 60 Glucose 115 H (70-99) mg/dL Calcium 8.1 L (8.5-10.1) mg/dL Corrected Calcium 8.3 L (8.5-10.1) mg/dL Magnesium 2.1 (1.8-2.4) mg/dL Total Bilirubin 0.3 (0.2-1.0) mg/dL AST 63 H (15-37) U/L ALT 48 (16-63) U/L Alkaline Phosphatase 87 (46-116) U/L Troponin I High Sens 10 (<=76) ng/L Total Protein 7.5 (6.4-8.2) g/dL Albumin 3.8 (3.4-5.0) g/dL Globulin 3.7 Albumin/Globulin Ratio 1.03 Urine Opiates Screen Negative (NEGATIVE) Ur Buprenorphine Scrn Negative (NEGATIVE) Ur Oxycodone Screen Negative (NEGATIVE) Urine Methadone Screen Negative (NEGATIVE) Ur Barbituates Screen Negative (NEGATIVE) Ur Phencyclidine Scrn Negative (NEGATIVE) Ur Amphetamines Screen Negative (NEGATIVE) U Methamphetamines Scrn Negative (NEGATIVE) Urine MDMA Screen Negative (NEGATIVE) U Benzodiazepines Scrn Negative (NEGATIVE) Urine Cocaine Screen Negative (NEGATIVE) U Marijuana (THC) Screen Negative (NEGATIVE) Ethyl Alcohol 263 H (0-3) mg/dL SARS-CoV-2 RNA (DONNA) (NEGATIVE) 03/21/21 Range/Units 05:20 WBC (4.0-10.0) x10^3/uL RBC (4.5-6.0) x10^6/uL Hgb (14.0-18.0) g/dL Hct (40.0-52.0) % MCV (78.0-93.0) fL MCH (26.0-32.0) pg MCHC (32.0-36.0) g/dL RDW Coeff of Kamla (10.0-15.0) % Plt Count (130-400) x10^3/uL Immature Gran % (Auto) (0.00-0.43) % Neut % (Auto) (50.0-80.0) % Lymph % (Auto) (25.0-50.0) % [place] % (Auto) (2.0-11.0) % Eos % (Auto) (0.0-4.0) % Baso % (Auto) (0.2-1.2) % Neut # (Auto) (1.8-7.7) x10^3/uL Lymph # (Auto) (1.0-4.8) x10^3/uL [place] # (Auto) (0.0-0.8) x10^3/uL Eos # (Auto) (0.0-0.5) x10^3/uL Baso # (Auto) (0.0-0.2) x10^3/uL Immature Gran # (Auto) (0.00-0.07) x10^3/uL Sodium (136-145) mmol/L Potassium (3.5-5.1) mmol/L Chloride (98-107) mmol/L Carbon Dioxide (21-32) mmol/L Anion Gap (5-15) mmol/L BUN (7-18) mg/dL Creatinine (0.70-1.30) mg/dL Est Cr Clr Drug Dosing Estimated GFR (MDRD) Glucose (70-99) mg/dL Calcium (8.5-10.1) mg/dL Corrected Calcium (8.5-10.1) mg/dL Magnesium (1.8-2.4) mg/dL Total Bilirubin (0.2-1.0) mg/dL AST (15-37) U/L ALT (16-63) U/L Alkaline Phosphatase (46-116) U/L Troponin I High Sens (<=76) ng/L Total Protein (6.4-8.2) g/dL Albumin (3.4-5.0) g/dL Globulin Albumin/Globulin Ratio Urine Opiates Screen (NEGATIVE) Ur Buprenorphine Scrn (NEGATIVE) Ur Oxycodone Screen (NEGATIVE) Urine Methadone Screen (NEGATIVE) Ur Barbituates Screen (NEGATIVE) Ur Phencyclidine Scrn (NEGATIVE) Ur Amphetamines Screen (NEGATIVE) U Methamphetamines Scrn (NEGATIVE) Urine MDMA Screen (NEGATIVE) U Benzodiazepines Scrn (NEGATIVE) Urine Cocaine Screen (NEGATIVE) U Marijuana (THC) Screen (NEGATIVE) Ethyl Alcohol (0-3) mg/dL SARS-CoV-2 RNA (DONNA) Negative (NEGATIVE) - Re-Assessments/Exams Free Text/Narrative Re-Assessment/Exam: 03/21/21 08:43 Pt has been awake, responsive, no neuro deficits noted or reported. C-spine CT shows no acute issues. O2 decreased from 4L NC to 2LNC, saline locked the IV, removed Mae cath. 03/21/21 08:59 CT head shows no acute abn. Pt awake and alert. 03/21/21 12:30 Has been ambulatory to bathroom without problems. States is ready to go home. Has a family member who is coming to get him and drive him home. Departure - Departure Time of Disposition: 12:44 Disposition: Home, Self-Care 01 Condition: Good Clinical Impression: Intoxication - Discharge Information Referrals: PCP,None [Ordering Only Provider] - Forms: ED Department Discharge Additional Instructions: Decrease your alcohol consumption. Follow up with your Primary Care Provider as needed. Sepsis Event Note (ED) - Focused Exam Vital Signs: Vital Signs Pulse Ox 03/21/21 04:38 100 - Problem List & Annotations (1) Intoxication SNOMED Code(s): 3157026476 Code(s): HHG5160 - Status: Acute Current Visit: Yes - Problem List Review Problem List Initiated/Reviewed/Updated: Yes - My Orders Last 24 Hours: My Active Orders 03/21/21 05:00 Urinary Catheter Insertion [Insert Urinary Catheter] [OM.PC] Q24H - Assessment/Plan Last 24 Hours: My Active Orders 03/21/21 05:00 Urinary Catheter Insertion [Insert Urinary Catheter] [OM.PC] Q24H
[2021-03-21 05:24] LABS: BUPRENORPHINE,URINE NEGATIVE (NEGATIVE); MARIJUANA,URINE NEGATIVE (NEGATIVE); METHYLENEDIOXYMETHAMP,UR NEGATIVE (NEGATIVE); PHENCYCLIDINE,URINE NEGATIVE (NEGATIVE)
[2021-03-21 05:32] LABS: CHLORIDE,CL 94 mmol/L (98-107); SODIUM,NA 132 mmol/L (136-145)
[2021-03-21 05:34] LABS: ANION GAP 15.9 mmol/L (5-15)
--- NOTE | 2021-03-21 09:13 | CT ---
[id number] CT/CT Head WO IV EXAM: CT Head WO IV CLINICAL DATA: FOUND UNRESPONSIVE. COMPARISON STUDY: 2018. FINDINGS: Findings are within limitations of patient motion artifact that degrades imaging on all sequences. No intracranial hemorrhage, extra-axial fluid collection, mass, or acute ischemia. No hydrocephalus. Calvarium intact. Paranasal sinuses and mastoid air cells are clear. IMPRESSION: No acute intracranial findings. Thomas Adkins MD 03/21/21 0912 Thank you for allowing us to participate in the care of your patient.
--- NOTE | 2021-03-21 09:16 | CT ---
[id number] CT/CT Cervical Spine WO IV EXAM: CT Cervical Spine WO IV INDICATION: FOUND UNRESPONSIVE. COMPARISON: MRI from 2019. DISCUSSION: No fracture or compression deformity. Vertebral bodies remain in normal alignment. Spondylosis. No prevertebral soft tissue edema. Lung apices are clear. IMPRESSION: No acute findings in the cervical spine. Thomas Adkins MD 03/21/21 0914 Thank you for allowing us to participate in the care of your patient.
== END 2021-03-21 12:44 | disposition home or self-care (01) ==
LOC: VM.ED 04:36
DX: F10.129 Alcohol abuse with intoxication, unspecified (principal); I11.0 Hypertensive heart disease with heart failure; I50.9 Heart failure, unspecified; I25.10 Atherosclerotic heart disease of native coronary artery without angina pectoris; Z88.5 Allergy status to narcotic agent; Z88.8 Allergy status to other drugs, medicaments and biological substances; Z79.82 Long term (current) use of aspirin; Z79.899 Other long term (current) drug therapy; Z20.822 Contact with and (suspected) exposure to COVID-19
CPT/HCPCS: 36415; 51702; 70450; 72125; 80053; 80305-QW; 80307; 83735; 84484; 85025; 94760; 99285-25; U0002

== ENCOUNTER 2024-03-26 12:40 | Day surgery (SDC) | payer MEDICARE, MEDICAID ==
[2024-03-26] MEDS ORDERED: fentaNYL 100 MCG/2 ML SDV ONE (12:54)
[2024-03-26] MEDS: Lactated Ringers 1,000 ML IV SCH (12:54)
[2024-03-26] MEDS ORDERED: Propofol 200 MG/20 ML SDV ONE ×2 (12:54→13:43)
[2024-03-26 14:44] VITALS: BP 142/68; PULSE 64
== END 2024-03-26 15:30 | disposition home or self-care (01) ==
LOC: VM.SDS 12:40
PROVIDERS: ATTEND Family Medicine
DX: D62 Acute posthemorrhagic anemia (principal); K21.9 Gastro-esophageal reflux disease without esophagitis; K44.9 Diaphragmatic hernia without obstruction or gangrene; I10 Essential (primary) hypertension; E78.00 Pure hypercholesterolemia, unspecified; N40.1 Benign prostatic hyperplasia with lower urinary tract symptoms; F41.9 Anxiety disorder, unspecified; Z87.891 Personal history of nicotine dependence; Z79.899 Other long term (current) drug therapy
CPT/HCPCS: 43239; 45378; J2704; J3010; J7120; 88305